=== PATIENT | female | born 1960 | race Caucasian/White ===

== ENCOUNTER → 2016-11-26 | Outpatient (CLI) | payer BC ==
[~2016-11-26] MED LIST: COLACE 100100 MG/CAP PO; CYMBALTA60 MG PO; FLEXERIL 1010 MG/TAB PO; LORTAB 5/500 501 TAB PO; NORCO 325 MG-51 TAB PO; PYRIDIUM200 M1 PO; ZOFRAN ODT4 MG PO
== END ==
LOC: MC.RAD 13:00
DX: N64.4 Mastodynia (principal)

== ENCOUNTER → 2018-06-21 | Outpatient (CLI) | payer BC, OTHER | LOC: MC.RAD 11:35 | DX: Z12.31 Encounter for screening mammogram for malignant neoplasm of breast (principal) ==

== ENCOUNTER → 2019-06-22 | Outpatient (CLI) | payer BC, OTHER | LOC: MC.RAD 10:57 | DX: Z12.31 Encounter for screening mammogram for malignant neoplasm of breast (principal) ==

== ENCOUNTER → 2020-08-16 | Outpatient (CLI) | payer BC | LOC: MC.RAD 06-25 08:00 | DX: Z12.31 Encounter for screening mammogram for malignant neoplasm of breast (principal) ==

== ENCOUNTER 2021-02-22 14:54 | Emergency (ER) | payer BC ==
[~2021-02-22] VITALS: Ht 175.3 cm; Wt 86.4 kg
[2021-02-22 15:08] VITALS: TEMP 98.1
[2021-02-22 15:22] LABS: BASO # 0.1 (0.0-0.2); BASO % 0.8 % (0.0-2.0); EOS # 0.2 (0.0-0.7); EOS % 3.7 % (0-4.0); GRAN # 3.3 (1.4-6.5); GRAN % 50.2 % (42.2-75.2); HEMATOCRIT 42.4 % (37.0-47.0); HEMOGLOBIN 14.1 g/dl (12.5-16.0); LYMPH # 2.4 (1.2-3.4); LYMPH % 36.9 % (20.0-51.0); MEAN CELL VOLUME 90 fl (80.0-100.0); MEAN CORPUSCULAR HEMOGLOBIN 30 pg (27.0-31.0); MEAN CORPUSCULAR HGB CONC 33 g/dl (33.0-37.0); MEAN PLATELET VOLUME 9.7 fl (7.4-10.4); MONO # 0.5 (0.1-0.6); MONO % 7.9 % (1.7-9.3); PLATELET COUNT 310 K/mm3 (130-400); RED BLOOD COUNT 4.72 M/mm3 (4.10-5.30); REDCELL DISTRIBUTION WIDTH-CV 13.2 % (11.5-14.5)
[2021-02-22 15:45] LABS: ALANINE AMINOTRANSFERASE 19 U/L (4-34); ALBUMIN 4.5 gm/dL (3.5-5.0); ALKALINE PHOSPHATASE 88 U/L (50-136); ANION GAP 8 mmol/L (7-16); AST,SGOT 25 U/L (15-37); BILIRUBIN,TOTAL 0.2 mg/dL (0.0-1.0); BLOOD UREA NITROGEN 14 mg/dL (7-17); C-REACTIVE PROTEIN 0.7 mg/dL (0.0-0.9); CALCIUM 9.8 mg/dL (8.4-10.2); CARBON DIOXIDE 24 mmol/L (22-30); CHLORIDE 106 mmol/L (98-107); CREATININE, serum 0.81 (0.52-1.25); GLUCOSE 102 mg/dL (74-106); SODIUM 137 mmol/L (137-145); TOTAL PROTEIN 7.7 gm/dL (6.4-8.2)
[2021-02-22 16:20] LABS: COLLECTION METHOD CLEAN CATCH
[2021-02-22 16:20] LABS: TROPONIN-I < 0.012 ng/mL (0.000-0.035)
[2021-02-22 16:26] LABS: LIPASE 67 U/L (23-300)
[2021-02-22 16:26] LABS: PH 6 (5-8); SQUAMOUS EPITHELIAL None Seen /hpf; URINE APPEARANCE Clear; URINE BACTERIA None Seen /hpf; URINE BILIRUBIN Negative (NEGATIVE); URINE BLOOD Negative (NEGATIVE); URINE COLOR Colorless; URINE GLUCOSE Negative (NEGATIVE); URINE KETONE Negative (NEGATIVE); URINE LEUKOCYTE ESTERASE Negative (NEGATIVE); URINE NITRATE Negative (NEGATIVE); URINE PROTEIN(semi-quant) Negative (NEGATIVE); URINE RBC 0-2 /hpf; URINE UROBILINOGEN Negative (NEGATIVE)
[2021-02-22] MEDS ORDERED: FLEXERIL 1010 MG/TAB PO (16:44)
[2021-02-22] MEDS ORDERED: NAPROSYN 2250 MG/TAB PO (16:44)
[2021-02-22 16:59] VITALS: BP 126/66; PULSE 71
== END 2021-02-22 17:04 | disposition home or self-care (01) ==
LOC: COL.ER 14:54
PROVIDERS: Nurse Practitioner Primary Care
DX: M94.0 Chondrocostal junction syndrome [Tietze] (principal); M79.7 Fibromyalgia; Z79.1 Long term (current) use of non-steroidal anti-inflammatories (NSAID)
CPT/HCPCS: J1200; J7030

== ENCOUNTER 2021-04-22 17:04 | Observation (INO) | payer BC ==
[~2021-04-22] VITALS: Ht 175.3 cm; Wt 87.3 kg
[~2021-04-22 17:04] MED LIST changes: +NAPROSYN 2250 MG/TAB PO
[2021-04-22 17:34] LABS: BASO # 0.1 K/mm3 (0.0-0.2); BASO % 1.2 % (0.0-2.0); EOS # 0.3 K/mm3 (0.0-0.7); EOS % 3.9 % (0-4.0); GRAN # 3.6 K/mm3 (1.4-6.5); GRAN % 50.1 % (42.2-75.2); HEMATOCRIT 40.2 % (37.0-47.0); HEMOGLOBIN 13.2 g/dl (12.5-16.0); LYMPH # 2.6 K/mm3 (1.2-3.4); LYMPH % 36.4 % (20.0-51.0); MEAN CELL VOLUME 91 fl (80.0-100.0); MEAN CORPUSCULAR HEMOGLOBIN 30 pg (27.0-31.0); MEAN CORPUSCULAR HGB CONC 33 g/dl (33.0-37.0); MEAN PLATELET VOLUME 9.7 fl (7.4-10.4); MONO # 0.6 K/mm3 (0.1-0.6); PLATELET COUNT 285 K/mm3 (130-400); RED BLOOD COUNT 4.44 M/mm3 (4.10-5.30); REDCELL DISTRIBUTION WIDTH-CV 13.2 % (11.5-14.5)
[2021-04-22 17:49] LABS: ALANINE AMINOTRANSFERASE 18 U/L (0-55); ALBUMIN 4.2 gm/dL (3.4-4.8); ALKALINE PHOSPHATASE 80 U/L (40-150); ANION GAP 10 mmol/L (7-16); AST,SGOT 18 U/L (5-34); BILIRUBIN,TOTAL 0.4 mg/dL (0.2-1.2); BLOOD UREA NITROGEN 19 mg/dL (10-20); CALCIUM 10.1 mg/dL (8.4-10.2); CARBON DIOXIDE 21 mmol/L (23-31); CHLORIDE 110 mmol/L (98-107); CREATININE, serum 0.77 mg/dL (0.57-1.11); GLUCOSE 93 mg/dL (70-99); POTASSIUM 3.6 mmol/L (3.5-4.5); SODIUM 141 mmol/L (136-145); TOTAL PROTEIN 7.2 gm/dL (6.2-8.1)
[2021-04-22 18:03] LABS: TROPONIN-I < 0.010 ng/mL (0.00-0.033)
[2021-04-22 19:29] LABS: PROTHROMBIN TIME 10.9 SECONDS (9.7-12.8)
[2021-04-22 20:00] VITALS: BP 166/70; PULSE 67; TEMP 97.6
[2021-04-22] MEDS ORDERED: TOPROL XL 25MG25 MG PO (21:22)
[2021-04-22] MEDS ORDERED: LIPITOR 10MG10 MG (21:23)
[2021-04-22] MEDS ORDERED: ASPIRIN E.C. 8181 MG PO (21:23)
[2021-04-22] MEDS ORDERED: LIPITOR 80MG80 MG PO (21:23)
[2021-04-22] MEDS ORDERED: NITROSTAT0.4 MG/TAB SL (21:24)
[2021-04-22] MEDS ORDERED: TYLENOL 500MG500 MG PO (21:29)
[2021-04-22] MEDS ORDERED: PROTONIX20 MG PO (21:31)
[2021-04-22 23:07] VITALS: BP 117/61; PULSE 76; TEMP 97.6
[2021-04-23] VITALS (13 sets, daily range): BP systolic 102–142; BP diastolic 49–73; PULSE 60–82; TEMP 97.9–99.1
[2021-04-23 06:58] LABS: CHOLESTEROL RISK RATIO 3.6
--- NOTE | 2021-04-23 10:34 | NUR ---
Initial visit; Patient thanked Skein Mercerizing Machine Operator for offering prayer and offering God's blessings.
--- NOTE | 2021-04-23 14:54 | NUR ---
SW met with this patient to discuss d/c plan. Patient reports that she and her , Inocente ([phone]) reside in [place]. Pt states she has no DME's and is completely independent with ADLS with no 02 needs. PCP is Dr. Maria Antonia Bolton in [place] and she gets her medications from [facility]. Patient states she has no MPOA and she has no interest in one. SW will continue to follow pending further recommendations
[2021-04-24] VITALS (14 sets, daily range): BP systolic 129–147; BP diastolic 64–74; PULSE 67–92; TEMP 97.8–98.7
--- NOTE | 2021-04-24 05:16 | NUR ---
PT REPORTS NOT SLEEPING THROUGH NIGHT AFTER SHE WAS AWAKENED FOR EKG. DENIES ANY PAIN. CONSENT OBTAINED FOR HEART CATH. HEAPARIN GTT ET NS INFUSING @ THIS TIME. PT HAS NOT HAD ANY PO INTAKE OVERNIGHT, HAS BEEN AMBULATING INDEPENDENTLY TO WITH NO PROBLEMS. PT DENIES OTHER NEEDS @ THIS TIME. CALL LIGHT WITHIN REACH.
[2021-04-24 06:53] LABS: HEMOGLOBIN 11.8 g/dl (12.5-16.0); MEAN CELL VOLUME 89 fl (80.0-100.0); MEAN CORPUSCULAR HEMOGLOBIN 29 pg (27.0-31.0); MEAN CORPUSCULAR HGB CONC 33 g/dl (33.0-37.0); MEAN PLATELET VOLUME 10.9 fl (7.4-10.4); PLATELET COUNT 275 K/mm3 (130-400); RED BLOOD COUNT 4.03 M/mm3 (4.10-5.30); REDCELL DISTRIBUTION WIDTH-CV 13.1 % (11.5-14.5)
[2021-04-24 06:57] LABS: HEMATOCRIT 35.7 % (37.0-47.0)
[2021-04-24 07:05] LABS: PROTHROMBIN TIME 11.6 SECONDS (9.7-12.8)
[2021-04-24 07:08] LABS: PARTIAL THROMBOPLASTIN TIME 77.2 SECONDS (26.0-37.0)
[2021-04-24 07:12] LABS: CALCIUM 9.5 mg/dL (8.4-10.2); CREATININE, serum 0.74 mg/dL (0.57-1.11); POTASSIUM 3.7 mmol/L (3.5-4.5)
--- NOTE | 2021-04-24 08:30 | NUR ---
Patient departed to Cardiac cath
--- NOTE | 2021-04-24 08:46 | NUR ---
SEE MERGE FOR ALL MEDICATION ADMINISTRATION TIMES AND INTRA/POST SEDATION ASSESSMENT.
--- NOTE | 2021-04-24 09:23 | NUR ---
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
[2021-04-24] MEDS ORDERED: ZETIA 10MG TAB10 MG PO (09:59)
--- NOTE | 2021-04-24 10:00 | NUR ---
Patient asked hospitalist if she could drive and was told yes.
--- NOTE | 2021-04-24 15:00 | NUR ---
Patient's band has been removed. No bleeding noted. Patient tolerated procedure well.
== END 2021-04-24 16:45 | disposition home or self-care (01) ==
LOC: COL.ER 17:04 → SURG 18:52
PROVIDERS: Nurse Practitioner; Student in an Organized Health Care Education/Training Program; ADMIT Student in an Organized Health Care Education/Training Program
DX: R07.9 Chest pain, unspecified (principal); I10 Essential (primary) hypertension; M79.7 Fibromyalgia; R73.03 Prediabetes; Z79.891 Long term (current) use of opiate analgesic; Z79.899 Other long term (current) drug therapy; Z83.3 Family history of diabetes mellitus
CPT/HCPCS: 99232-AI; 99233-AI; G0378; J1644; J2250; J2704; J3010; J7030

== ENCOUNTER → 2021-10-09 | Outpatient (CLI) | payer BC ==
[~2021-10-09] MED LIST changes: +ASPIRIN E.C. 8181 MG PO; +LIPITOR 10MG10 MG; +LIPITOR 80MG80 MG PO; +NITROSTAT0.4 MG/TAB SL; +PROTONIX20 MG PO; +TOPROL XL 25MG25 MG PO; +TYLENOL 500MG500 MG PO; +ZETIA 10MG TAB10 MG PO
== END ==
LOC: MC.RAD 09-10 11:30
DX: Z12.31 Encounter for screening mammogram for malignant neoplasm of breast (principal)